=== PATIENT | female | born 1965 | race Caucasian/White ===

== ENCOUNTER → 2020-04-06 11:32 | Outpatient (CLI) | payer OTHER, SELFPAY ==
--- NOTE | ~2020-04-06 | MM_ITS ---
EXAMINATION: MM screening nicholas BI w alejandra HISTORY: Screening TECHNIQUE: Craniocaudal and mediolateral oblique 3-D tomosynthesis images were obtained and synthetic 2-D images were generated. CAD analysis was submitted and interpreted. COMPARISON: Comparison to multiple prior studies sequentially, with oldest reviewed study dated 12/11. BREAST PARENCHYMAL COMPOSITION: The breasts are heterogeneously dense, which may obscure small masses . FINDINGS: There is no evidence of suspicious mass, calcification, or architectural distortion to sugg est malignancy in either breast. There has been no suspicious interval change. IMPRESSION: 1. No mammographic evidence of malignancy. 2. Recommend routine screening mammography in one year. BI-RADS Category 1: Negative Reviewed, dictated and finalized at location A. SS DIRECTOR
== END ==
PROVIDERS: Visit Provider Obstetrics & Gynecology
DX: Z12.31 Encounter for screening mammogram for malignant neoplasm of breast (principal)
CPT/HCPCS: 77063; 77067

== ENCOUNTER 2021-07-19 09:34 | Outpatient (CLI) | payer BC, SELFPAY ==
--- NOTE | ~2021-07-19 | MM_ITS ---
EXAMINATION: MM screening nicholas BI w alejandra HISTORY: Screening TECHNIQUE: Craniocaudal and mediolateral oblique 3-D tomosynthesis images were obtained and synthetic 2-D images were generated. CAD analysis was submitted and interpreted. COMPARISON: Comparison to multiple prior studies sequentially, with oldest reviewed study dated 08/2012. BREAST PARENCHYMAL COMPOSITION: The breasts are heterogenously dense, which may obscure small masses FINDINGS: There is no evidence of suspicious mass, calcification, or architectural distortion to sugg est malignancy in either breast. There has been no suspicious interval change. IMPRESSION: 1. No mammographic evidence of malignancy. 2. Recommend routine screening mammography in one year. BI-RADS Category 1: Negative Reviewed, dictated and finalized at location A.
== END 2021-07-19 09:35 | disposition home or self-care (01) ==
LOC: ANHIMG 09:36
PROVIDERS: Visit Provider Student in an Organized Health Care Education/Training Program
DX: Z12.31 Encounter for screening mammogram for malignant neoplasm of breast (principal)
CPT/HCPCS: 77063; 77067

== ENCOUNTER 2023-10-12 16:14 | Emergency (ER) | payer BC, SELFPAY ==
[2023-10-12 16:22] VITALS: BP 118/79; PULSE 87; RESP 16; TEMP 36.9; O2SAT 98
--- NOTE | 2023-10-12 17:09 | ED.WOUNDLAC ---
HPI - Wound/Laceration General Chief Complaint: Wound/Laceration Stated Complaint: Insect Bites Time Seen by Provider: 10/12/23 16:55 Source: patient, RN notes reviewed and old records reviewed Mode of arrival: ambulatory Limitations: no limitations History of Present Illness HPI narrative: 58 year old female who presents to [facility] care with complaints of red raised round lesion noted to her left upper thigh last pm that was initial tender but now itchy, had similar area to the back of her left lower leg 3 days ago that has lightened but is itchy, each area about 4 cm diameter.. Patient reports that she had been doing some yard work wearing shorts because it was so hot and also has raised pustules scattered on lower right leg and some also to left leg are itchy with some fluid noted from them. Patient states that she has been taking Benadryl for the itching, denies pain, denies any fevers. Onset (ago): day(s) (3) Location: other (lower extremities) Treatments prior to arrival: other (Benadryl) Related Data Allergies Allergy/AdvReac Type Severity Reaction Status Date / Time No Known Allergies Allergy Mild Verified 07/13/21 11:27 Review of Systems Review of Systems: CONSTITUTIONAL: Denies fever, chills, or sweats. CARDIOVASCULAR: Denies chest pain, palpitations, or edema. RESPIRATORY: Denies cough or dyspnea. GASTROINTESTINAL: Denies abdominal pain, nausea, vomiting SKIN: Reports red raised lesion to posterior upper thigh are which is itchy, also light red circular area to posterior left lower leg that is itchy and scattered pustules to lower legs MUSCULOSKELETAL: Denies myalgia. NEUROLOGIC: Denies headache, numbness All systems reviewed & are unremarkable except as noted in HPI and below PMFSH Past Medical History Medical History (Updated 10/13/23 @ 10:44 by Ashli Patel NP) Acid reflux Depression IBS (irritable bowel syndrome) Pre-diabetes Vaginal delivery x4 Surgical History Surgical History History of tonsillectomy [place] teeth extracted Family History Family History Mother Pre-diabetes Father Pre-diabetes Hypertension Social History Social History (Reviewed 05/05/20 @ 14:16 by Anna Ritchie [facility]) Smoking status: Never smoker Alcohol intake: current Alcohol use details: social Substance use: never Comments At time of signature, agree with nursing past medical, surgical, social and family history. There is no relevant family history pertinent to the presenting complaint Exam Narrative: GENERAL: Well-appearing, well-nourished, and in no acute distress. HEAD: Normocephalic, atraumatic. EYES: PERRLA and EOMI. ENT: Nares clear, no rhinorrhea or epistaxis. Mucous membranes moist. NECK: Supple.no lymphadenopathy CHEST: Clear to auscultation. No respiratory distress.SAO2 98% on room air HEART: Regular rate and rhythm. No murmur heard. Normal peripheral pulses. ABDOMEN: Soft, nontender, nondistended, normal active bowel sounds. EXTREMITIES: Normal range of motion. No edema. SKIN: Warm, dry. 4cm area of red raised itchy tissue to back of left thigh, left lower leg posterior light red circular area 4cm diameter itchy with some scattered pustules on lower legs bilateral with some clear fluid from lesions. are also itchy, no fevers noted NEURO: No focal deficits. Alert and oriented x3. Course Course Emergency Course: Patient is aware of diagnosis, understands and agrees to treatment plan. Anticipatory guidance given. Patient agrees to follow-up as directed and is aware of reasons to seek care at the emergency department. Portions of this record may have been created with voice recognition software Level of Care: Express Care Visit Vital Signs Vital signs: Vital Signs Temperature 36.9 C 10/12/23 16:22 Pulse Rate 87 10/12/23 16:22 Respi
== END 2023-10-12 17:36 | disposition home or self-care (01) ==
PROVIDERS: Emergency Provider Registered Nurse
DX: L25.9 Unspecified contact dermatitis, unspecified cause (principal); L03.116 Cellulitis of left lower limb; K21.9 Gastro-esophageal reflux disease without esophagitis; R73.03 Prediabetes
CPT/HCPCS: 99213; G0463

== ENCOUNTER 2024-04-09 10:25 | Outpatient (CLI) | payer BC, SELFPAY ==
--- NOTE | ~2024-04-09 | MM_ITS ---
EXAMINATION: MM screening nicholas BI w alejandra HISTORY: Screening TECHNIQUE: Craniocaudal and mediolateral oblique 3-D tomosynthesis images were obtained and synthetic 2-D images were generated. CAD analysis was submitted and interpreted. COMPARISON: Comparison to multiple prior studies sequentially, with oldest reviewed study dated 01/10. BREAST PARENCHYMAL COMPOSITION: Dense: The breasts are heterogeneously dense, which may obscure small masses FINDINGS: There is no evidence of suspicious mass, calcification, or architectural distortion to sugg est malignancy in either breast. There has been no suspicious interval change. IMPRESSION: 1. No mammographic evidence of malignancy. 2. Recommend routine screening mammography in one year. BI-RADS Category 1: Negative Reviewed, dictated and finalized at location A. 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
--- OUTSIDE RECORDS SUMMARY | 2024-04-09 11:24 | XMS_ITS | Data Portability ---
Author Organization [facility] Address [address] [facility] MICHAEL [place] [address] Care Team Providers Care Credit Portfolio Manager Name Role Phone CORI OLIVO Primary Care Provider Assessment No assessment recorded. Plan of Treatment Reminders Order Date Submit Date Provider Last Modified By Organization Details Last Modified Time Details Appointments None recorded. Lab CBC 2023 024 [facility], [address] [facility], [facility] [address], [place], [address], 4 11:14:15 CMP, serum or plasma 2023 024 [facility], [address] [facility], [facility] [address], [place], [address], 4 11:14:13 lipid panel, serum 2023 024 [facility], [address] [facility], [facility] [address], [place], [address], 4 11:14:12 HbA1c (hemoglobi n A1c), blood 2023 024 KARLY In-Office Order, Internal Use Only DO Not Attach Compendium DO Not Attach Compendium, Do Not Delete/merge, [id number] 4 12:55:58 cytology report, thin prep, smear or scraping, cervical or vaginal 2023 024 [facility], [address] [facility], [address], [place], [address], 4 08:27:36 CBC 2023 024 [facility], [address] [facility], [facility] [address], [place], [address], 4 10:15:19 CMP, serum or plasma 2023 024 [facility], [address] [facility], [facility] [address], [place], [address], 4 10:15:17 lipid panel, serum 2023 024 [facility], [address] [facility], [facility] [address], [place], [address], 4 10:15:16 HbA1c (hemoglobi n A1c), blood 2023 024 K[facility]LY In-Office Order, Internal Use Only DO Not Attach Compendium DO Not Attach Compendium, Do Not Delete/merge, [id number] 4 13:04:35 Referral None recorded. Procedures None recorded. Surgeries None recorded. Imaging MAMMO, screening, bilateral 2023 024 [facility], [address] [place], [address], 5 09:45:32 Medication Orders paroxetine 10 mg tablet 2023 024 [id number], [address], [place], [id number], 4 12:38:07 Patient TargetsNo targets recorded. Patient Instructions Encounter Date Encounter Id Patient Instructions Last Modified By Organization Details Last Modified Time 10/29/2023 [id number] A healthy lifestyle: care instructions [email or web address] Not available 10/29/2023 12:35:23 01/07/2024 [id number] Your women's health annual exam today was unremarkable. Continue to practice breast self awareness like we discussed. Come back to the office with any breast changes, nipple discharge, change to your menstrual cycle, or with complaints of unusual odorous discharge. Otherwise, come back in 1 year for your next well woman annual exam. Do NOT douche as it disturbs the natural balance of bacteria in the vagina and can cause infection. Avoid scented soaps or lotions. Use a basic unscented soap for only the outer skin around your vagina. Wear cotton underwear, avoid thongs, avoid spandex, leggings and wear panty liners daily. You can try probiotics. Use a condom with EVERY sexual encounter to minimize your risk for sexually transmitted infection and unplanned . 1. Start taking a multivitamin, calcium and vitamin D3 supplements daily to keep your bones healthy. 2. Exercise and keep a healthy diet to minimize risk for stroke, heart attack and osteoporosis. 3. Use a once a day vaginal moisturizer (like Replens) if you have bothersome dryness. If dryness continues to be a problem, make an appointment to see us to discuss other options. Keep taking your multivitamins. Your bones get weaker after menopause, and you need to take your calcium and vitamin D3, which are multivitamins, to make sure your bones stay strong. Regular exercise, like walking, is very good to keep bones healthy. Try exercising for 30 minutes 5 times a week. Try having 2-3 servings of low fat dairy every day. Lubrication can help make penetrative intercourse more comfortable. There are 3 types of lube: Water-based (examples are KY jelly, Astroglide): inexpensive, can buy over the counter, often gets sticky and needs to be reapplied. Oil-based (examples olive oil, coconut oil): inexpensive, can stain sheets, do not use with condoms. Silicone-based (examples Uber Lube, Pjur): more expensive, a little goes a long way, does not have scents or stain sheets. [email or web address] Not available 01/07/2024 11:09:02 01/28/2024 [id number] A healthy lifestyle: care instructions [email or web address] Not available 01/28/2024 12:28:25 type 2 diabetes: care instructions jnanney Not available 01/28/2024 12:28:25 Reason for Referral None Reported. Results Created Date Observation Date Name Description Value Unit Range Abnormal Flag Note LastModifiedBy Organization Detail LastModifiedTime 08/19/10/30/2023 LIPID PANEL cholesterol, total 227 mg/dL 100-19 9 above high normal Not Available [address], [address], 10/30/2023 11:14:12 10/29/19 24 10/30/2023 LIPID PANEL triglyceride s 288 mg/dL 0-149 above high normal Not Available [address], [address], 10/30/2023 11:14:12 10/29/19 24 10/30/2023 LIPID PANEL HDL cholesterol 53 mg/dL >39 Not Available [address], [address], 10/30/2023 11:14:12 10/29/19 24 10/30/2023 LIPID PANEL VLDL cholesterol catalina 50 mg/dL 5-40 above high normal Not Available [address], [address], 10/30/2023 11:14:12 10/29/19 24 10/30/2023 LIPID PANEL LDL chol calc ([facility]) 124 mg/dL 0-99 above high normal Not Available [address], [address], 10/30/2023 11:14:12 10/29/19 24 10/30/2023 COMP. METAB OLIC PANEL (14) glucose - mg/dL Test not perfo rmed. Serum was in conta ct with cells when recei alexandra which will make the resul t inacc urate . Not Available [address], [address], 10/30/2023 11:14:13 10/29/19 24 10/30/2023 COMP. METAB OLIC PANEL (14) BUN 20 mg/dL 6-24 Not Available [facility] & [address], [address], 10/30/2023 11:14:13 10/29/19 24 10/30/2023 COMP. METAB OLIC PANEL (14) creatinine 0.73 mg/dL 0.57-1 .00 Not Available [address], [address], 10/30/2023 11:14:13 10/29/19 24 10/30/2023 COMP. METAB OLIC PANEL (14) eGFR 95 mL/mi n/1.7 3 >59 Not Available [address], [address], 10/30/2023 11:14:13 10/29/19 24 10/30/2023 COMP. METAB OLIC PANEL (14) BUN/creatini ne ratio 27 9-23 above high normal Not Available [address], [address], 10/30/2023 11:14:13 10/29/19 24 10/30/2023 COMP. METAB OLIC PANEL (14) sodium 140 mmol/ L 134-14 4 Not Available [address], [address], 10/30/2023 11:14:13 10/29/19 24 10/30/2023 COMP. METAB OLIC PANEL (14) potassium - mmol/ L Test not perfo rmed. Serum was in conta ct with cells when recei alexandra which will make the resul t inacc urate . Not Available [address], [address], 10/30/2023 11:14:13 10/29/19 24 10/30/2023 COMP. METAB OLIC PANEL (14) chloride 104 mmol/ L 96-106 Not Available [address], [address], 10/30/2023 11:14:13 10/29/19 24 10/30/2023 COMP. METAB OLIC PANEL (14) carbon dioxide, total 19 mmol/ L 20-29 below low normal Not Available [address], [address], 10/30/2023 11:14:13 10/29/19 24 10/30/2023 COMP. METAB OLIC PANEL (14) calcium 9.7 mg/dL 8.7-10 .2 Not Available [address], [address], 10/30/2023 11:14:13 10/29/19 24 10/30/2023 COMP. METAB OLIC PANEL (14) protein, total 7.1 g/dL 6.0-8. 5 Not Available [address], [address], 10/30/2023 11:14:13 10/29/19 24 10/30/2023 COMP. METAB OLIC PANEL (14) albumin 4.6 g/dL 3.8-4. 9 Not Available [address], [address], 10/30/2023 11:14:13 10/29/19 24 10/30/2023 COMP. METAB OLIC PANEL (14) globulin, total 2.5 g/dL 1.5-4. 5 Not Available [address], [address], 10/30/2023 11:14:13 10/29/19 24 10/30/2023 COMP. METAB OLIC PANEL (14) bilirubin, total 0.7 mg/dL 0.0-1. 2 Not Available [address], [address], 10/30/2023 11:14:13 10/29/19 24 10/30/2023 COMP. METAB OLIC PANEL (14) alkaline phosphatase 91 IU/L 44-121 Not Available [facility] & [address], [address], 10/30/2023 11:14:13 10/29/19 24 10/30/2023 COMP. METAB OLIC PANEL (14) AST (SGOT) 17 IU/L 0-40 Not Available [facility] & [address], [address], 10/30/2023 11:14:13 10/29/19 24 10/30/2023 COMP. METAB OLIC PANEL (14) ALT (SGPT) 12 IU/L 0-32 Not Available [address], [address], 10/30/2023 11:14:13 10/29/19 24 10/30/2023 CARDI OVASC ULAR REPOR T interpretati on Note Suppl ement al repor t is avail able. Not Available [address], [address], 10/30/2023 11:14:14 10/29/19 24 10/30/2023 CARDI OVASC ULAR REPOR T pdf . Not Available [facility] & [address], [address], 10/30/2023 11:14:14 10/29/19 24 10/30/2023 CBC, PLATE LET, NO DIFFE RENTI AL WBC 8.3 x10e3 /uL 3.4-10 .8 Not Available [facility] & [address], [address], 10/30/2023 11:14:15 10/29/19 24 10/30/2023 CBC, PLATE LET, NO DIFFE RENTI AL RBC 4.18 x10e6 /uL 3.77-5 .28 Not Available [facility] & [address], [address], 10/30/2023 11:14:15 10/29/19 24 10/30/2023 CBC, PLATE LET, NO DIFFE RENTI AL hemoglobin 12.7 g/dL 11.1-1 5.9 Not Available [facility] & [address], [address], 10/30/2023 11:14:15 10/29/19 24 10/30/2023 CBC, PLATE LET, NO DIFFE RENTI AL hematocrit 39.6 % 34.0-4 6.6 Not Available [address], [address], 10/30/2023 11:14:15 10/29/19 24 10/30/2023 CBC, PLATE LET, NO DIFFE RENTI AL MCV 95 fL 79-97 Not Available [facility] & [address], [address], 10/30/2023 11:14:15 10/29/19 24 10/30/2023 CBC, PLATE LET, NO DIFFE RENTI AL MCH 30.4 pg 26.6-3 3.0 Not Available [address], [address], 10/30/2023 11:14:15 10/29/19 24 10/30/2023 CBC, PLATE LET, NO DIFFE RENTI AL MCHC 32.1 g/dL 31.5-3 5.7 Not Available [facility] & [address], [address], 10/30/2023 11:14:15 10/29/19 24 10/30/2023 CBC, PLATE LET, NO DIFFE RENTI AL RDW 12.7 % 11.7-1 5.4 Not Available [address], [address], 10/30/2023 11:14:15 10/29/19 24 10/30/2023 CBC, PLATE LET, NO DIFFE RENTI AL platelets 280 x10e3 /uL 150-45 0 Not Available [facility] & [address], [address], 10/30/2023 11:14:15 10/29/19 24 10/29/2023 HbA1c (hemo globi n A1c), blood HbA1c 7.2 Not Available In-Office Order Internal Use Only DO Not Attach Compendium DO Not Attach Compendium, Do Not Delete/merge, [id number] 10/29/2023 12:35:43 01/07/20 24 01/09/2024 IGP, APTIM A HPV, RFX 16/18 ,45 HPV aptima NEGATI VE negati ve This nucle ic acid ampli ficat ion test detec ts fourt een high- risk HPV types (16,1 8,31, 33,35 ,39,4 5,51, 52,56 ,58,5 9,66, 68) witho ut diffe renti ation . Not Available [facility] ([facility]) [address] [facility], [place], [address], 01/12/2024 08:27:36 01/07/20 24 01/12/2024 IGP, APTIM A HPV, RFX 16/18 ,45 diagnosis: COMMEN T NEGAT ELIANA FOR INTRA EPITH ELIAL REGGIE Hernandez OR MO MCDANIEL . Not Available [facility] ([facility]) [address] [facility], [place], [address], 01/12/2024 08:27:36 01/07/2001/12/2024 IGP, APTIM A HPV, RFX 16/18 ,45 specimen adequacy: COMMEN T Satis facto ry for evalu ation . Endoc ervic al and/o r squam ous metap lasti c cells (endo cervi catalina compo nent) are prese nt. Not Available [facility] ([facility]) [address] [facility], [place], [address], 01/12/2024 08:27:36 01/07/2001/12/2024 IGP, APTIM A HPV, RFX 16/18 ,45 clinician provided ICD10: KULDEEP Newton Z01.4 19 Not Available [facility] ([facility]) [address] [place], [address], 01/12/2024 08:27:36 01/07/2001/12/2024 IGP, APTIM A HPV, RFX 16/18 ,45 performed by: KULDEEP davis, Cytot billie newton (ASCP ) Not Available [facility] ([facility]) [address] [place], [address], 01/12/2024 08:27:36 01/07/20 24 01/12/2024 IGP, APTIM A HPV, RFX 16/18 ,45 . . Not Available [facility] ([facility]) [address] [place], [address], 01/12/2024 08:27:36 01/07/2001/12/2024 IGP, APTIM A HPV, RFX 16/18 ,45 note: KULDEEP Newton The Pap smear is a scree shad test desig marsha to aid in the detec tion of glo ligna nt and malig nant condi tions of the uteri ne cervi x. It is not a diagn ostic proce dure and shoul d not be used as the sole means of detec ting cervi catalina cance r. Both false -posi tive and false -nega tive repor ts do occur . Not Available [facility] ([facility]) [address] [place], [address], 01/12/2024 08:27:36 01/07/20 24 01/12/2024 IGP, APTIM A HPV, RFX 16/18 ,45 test methodology: KULDEEP Newton This liqui d based ThinP rep(R ) pap test was scree marsha with the use of an image guide yenny pizarro Not Available [facility] ([facility]) [address] [facility], [place], [address], 01/12/2024 08:27:36 01/07/2001/12/2024 IGP, APTIM A HPV, RFX 16/18 ,45 HPV genotype reflex COMMEN T Crite kat not met, HPV Genot ype not perfo rmed. Not Available [facility] ([facility]) [address] [facility], [place], [address], 01/12/2024 08:27:36 01/28/2001/29/2024 LIPID PANEL cholesterol, total 277 mg/dL 100-19 9 above high normal Not Available [address], [address], 01/29/2024 10:15:15 01/28/20 24 01/29/2024 LIPID PANEL triglyceride s 244 mg/dL 0-149 above high normal Not Available [address], [address], 01/29/2024 10:15:15 01/28/20 24 01/29/2024 LIPID PANEL HDL cholesterol 54 mg/dL >39 Not Available [facility] [address], [address], 01/29/2024 10:15:15 01/28/20 24 01/29/2024 LIPID PANEL VLDL cholesterol catalina 46 mg/dL 5-40 above high normal Not Available [address], [address], 01/29/2024 10:15:15 01/28/20 24 01/29/2024 LIPID PANEL LDL chol calc ([facility]) 177 mg/dL 0-99 above high normal Not Available [address], [address], 01/29/2024 10:15:15 01/28/20 24 01/29/2024 COMP. METAB OLIC PANEL (14) glucose 123 mg/dL 70-99 above high normal Not Available [address], [address], 01/29/2024 10:15:17 01/28/20 24 01/29/2024 COMP. METAB OLIC PANEL (14) BUN 17 mg/dL 6-24 Not Available [address], [address], 01/29/2024 10:15:17 01/28/20 24 01/29/2024 COMP. METAB OLIC PANEL (14) creatinine 0.61 mg/dL 0.57-1 .00 Not Available [address], [address], 01/29/2024 10:15:17 01/28/20 24 01/29/2024 COMP. METAB OLIC PANEL (14) eGFR 104 mL/mi n/1.7 3 >59 Not Available [address], [address], 01/29/2024 10:15:17 01/28/20 24 01/29/2024 COMP. METAB OLIC PANEL (14) BUN/creatini ne ratio 28 9-23 above high normal Not Available [address], [address], 01/29/2024 10:15:17 01/28/20 24 01/29/2024 COMP. METAB OLIC PANEL (14) sodium 141 mmol/ L 134-14 4 Not Available [address], [address], 01/29/2024 10:15:17 01/28/20 24 01/29/2024 COMP. METAB OLIC PANEL (14) potassium 4.3 mmol/ L 3.5-5. 2 Not Available [address], [address], 01/29/2024 10:15:17 01/28/20 24 01/29/2024 COMP. METAB OLIC PANEL (14) chloride 106 mmol/ L 96-106 Not Available [address], [address], 01/29/2024 10:15:17 01/28/20 24 01/29/2024 COMP. METAB OLIC PANEL (14) carbon dioxide, total 21 mmol/ L 20-29 Not Available [address], [address], 01/29/2024 10:15:17 01/28/20 24 01/29/2024 COMP. METAB OLIC PANEL (14) calcium 9.6 mg/dL 8.7-10 .2 Not Available [address], [address], 01/29/2024 10:15:17 01/28/20 24 01/29/2024 COMP. METAB OLIC PANEL (14) protein, total 6.8 g/dL 6.0-8. 5 Not Available [address], [address], 01/29/2024 10:15:17 01/28/20 24 01/29/2024 COMP. METAB OLIC PANEL (14) albumin 4.4 g/dL 3.8-4. 9 Not Available [address], [address], 01/29/2024 10:15:17 01/28/20 24 01/29/2024 COMP. METAB OLIC PANEL (14) globulin, total 2.4 g/dL 1.5-4. 5 Not Available [address], [address], 01/29/2024 10:15:17 01/28/20 24 01/29/2024 COMP. METAB OLIC PANEL (14) bilirubin, total 0.6 mg/dL 0.0-1. 2 Not Available [address], [address], 01/29/2024 10:15:17 01/28/20 24 01/29/2024 COMP. METAB OLIC PANEL (14) alkaline phosphatase 79 IU/L 44-121 Not Available [address], [address], 01/29/2024 10:15:17 01/28/20 24 01/29/2024 COMP. METAB OLIC PANEL (14) AST (SGOT) 19 IU/L 0-40 Not Available [address], [address], 01/29/2024 10:15:17 01/28/20 24 01/29/2024 COMP. METAB OLIC PANEL (14) ALT (SGPT) 13 IU/L 0-32 Not Available [address], [address], 01/29/2024 10:15:17 01/28/20 24 01/29/2024 CARDI OVASC ULAR REPOR T interpretati on Note Suppl ement al repor t is avail able. Not Available [address], [address], 01/29/2024 10:15:18 01/28/20 24 01/29/2024 CARDI OVASC ULAR REPOR T pdf . Not Available [address], [address], 01/29/2024 10:15:18 01/28/20 24 01/29/2024 CBC, PLATE LET, NO DIFFE RENTI AL WBC 7.3 x10e3 /uL 3.4-10 .8 Not Available [facility] & [address], [address], 01/29/2024 10:15:19 01/28/20 24 01/29/2024 CBC, PLATE LET, NO DIFFE RENTI AL RBC 3.95 x10e6 /uL 3.77-5 .28 Not Available [address], [address], 01/29/2024 10:15:19 01/28/2001/29/2024 CBC, PLATE LET, NO DIFFE RENTI AL hemoglobin 12.1 g/dL 11.1-1 5.9 Not Available [address], [address], 01/29/2024 10:15:19 01/28/20 24 01/29/2024 CBC, PLATE LET, NO DIFFE RENTI AL hematocrit 36.7 % 34.0-4 6.6 Not Available [address], [address], 01/29/2024 10:15:19 01/28/20 24 01/29/2024 CBC, PLATE LET, NO DIFFE RENTI AL MCV 93 fL 79-97 Not Available [facility] & [address], [address], 01/29/2024 10:15:19 01/28/20 24 01/29/2024 CBC, PLATE LET, NO DIFFE RENTI AL MCH 30.6 pg 26.6-3 3.0 Not Available [address], [address], 01/29/2024 10:15:19 01/28/20 24 01/29/2024 CBC, PLATE LET, NO DIFFE RENTI AL MCHC 33.0 g/dL 31.5-3 5.7 Not Available [facility] [address] [place], [address], 01/29/2024 10:15:19 01/28/20 24 01/29/2024 CBC, PLATE LET, NO DIFFE RENTI AL RDW 12.5 % 11.7-1 5.4 Not Available [address], [address], 01/29/2024 10:15:19 01/28/20 24 01/29/2024 CBC, PLATE LET, NO DIFFE RENTI AL platelets 318 x10e3 /uL 150-45 0 Not Available [address], [address], 01/29/2024 10:15:19 01/28/20 24 01/28/2024 HbA1c (hemo globi n A1c), blood HbA1c 7.1 Not Available In-Office Order Internal Use Only DO Not Attach Compendium DO Not Attach Compendium, Do Not Delete/merge, [id number] 01/28/2024 12:28:08 04/09/19 25 04/09/2024 MAMMO , christina fatimal No observ ation record ed. [facility] [address] [place], [address], 04/09/2024 12:12:16 Result Notes None recorded. Problems Name Problem SNOMED Code Status Onset Date Resolution Date Notes Provider Name and Address Organization Details Recorded Time Diabetes mellitus [id number] Active 024 MARGARET NAGEL NP Attn: Accounting ,[address] [facility], [place], [address] , [facility] 11:58:31 Problem Notes None recorded. Procedures Surgical History Date Name Laterality Status Provider Name and Address Organization Details Recorded Time 01/07/2024 Date of Last Pap Smear completed MARGARET NAGEL NP Attn: Accounting,[address] [facility], [place], [address], [place] 01/14/2024 09:11:39 03/12/1973 tonsilectom y/adenoids completed Grecia Davies MA [facility] 10/29/2023 12:20:08 Imaging Results Imaging Date Name Status LastModified by Organiz ation Details LastModified Time 04/09/2024 MAMMO, screening, bilateral active [facility] [address] [place], [address], 04/09/2024 12:12:16 Procedure Notes None recorded. Medical Equipment None Reported. Allergies No known drug allergies Medications Name Sig Start Date Stop Date Status Note LastModified by Organization Details LastModified Time prednison e 10 mg tablet TAKE 6 TABLETS BY MOUTH DAY 1 THEN DECREASE BY 1 TABLET BY MOUTH DAILY UNTIL ALL TAKEN 10/28 completed Not Available Not Available Not Available paroxetin e 10 mg tablet TAKE 1 TABLET BY MOUTH EVERY DAY active Not Available Not Available No t Available atorvasta tin 20 mg tablet TAKE 1 TABLET BY MOUTH EVERY DAY active Not Available Not Available No t Available atorvasta tin 10 mg tablet TAKE 1 TABLET BY MOUTH EVERY DAY 10/29 completed - out of it but would like to stay off this if possible Not Available Not Available Not Available hyoscyami ne ER 0.375 mg tablet,ex tended release,1 2 hr TAKE 1 TABLET BY MOUTH EVERY 12 HOURS active Not Available Not Available No t Available benzonata te 100 mg capsule TAKE 1 TO 2 CAPSULES BY MOUTH EVERY 8 HOURS FOR 5 DAYS NEEDED FOR COUGH 10/28 completed Not Available Not Available Not Available cephalexi n 500 mg capsule TAKE 1 CAPSULE BY MOUTH EVERY 8 HOURS 10/28 completed Not Available Not Available Not Available mupirocin 2 % topical ointment APPLY TOPICALL Y TO THE AFFECTED AREA TWICE DAILY 10/28 completed Not Available Not Available Not Available Vitals Date Recorded Body height Provider Name an d Address Organization Details Last Updated DateTime 10/29/2023 160.02 cm Grecia Davies MA [facility] 10/29/19 12:06:44 Date Recorded Body mass index (BMI) Body weight Provider Name and Address Organization Details Last Updated DateTime 10/29/2023 25.9 kg/m2 27125.49 g Grecia Davies MA [facility] 10/29/2023 12:06:49 Date Recorded Oxygen saturation Oxygen saturation in Arterial blood by Pulse oximetry Provider Name and Address Organization Details Last Updated DateTime 10/29/2023 97 % 97 % Grecia Davies MA [facility] 10/29/2023 12:22:36 Date Recorded Heart rate Provider Name an d Address Organization Details Last Updated DateTime 10/29/2023 83 /min Grecia Davies MA [facility] 10/29/19 12:22:40 Date Recorded Body height Provider Name an d Address Organization Details Last Updated DateTime 01/07/2024 160.02 cm Haleigh Diaz MA [facility] 01/07/20 11:15:27 Date Recorded Body mass index (BMI) Body weight Provider Name and Address Organization Details Last Updated DateTime 01/07/2024 25.7 kg/m2 55653.89 g Haleigh Diaz MA [facility] 01/07/2024 11:15:33 Date Recorded Heart rate Provider Name an d Address Organization Details Last Updated DateTime 01/07/2024 111 /min Haleigh Diaz MA [facility] 01/07/20 11:22:39 Date Recorded Body height Provider Name an d Address Organization Details Last Updated DateTime 01/28/2024 160.02 cm Lesly Quinteros MA [facility] 12:12:57 Date Recorded Body mass index (BMI) Body weight Provider Name and Address Organization Details Last Updated DateTime 01/28/2024 25.4 kg/m2 69392.51 g Lesly Quinteros MA [facility] 01/28/2024 12:13:04 Date Recorded Respiratory rate Provider Name a nd Address Organization Details Last Updated DateTime 01/28/2024 16 /min Lesly Quinteros MA [facility] 12:13:59 Date Recorded Oxygen saturation Oxygen saturation in Arterial blood by Pulse oximetry Provider Name and Address Organization Details Last Updated DateTime 01/28/2024 98 % 98 % Lesly Quinteros MA [facility] 01/28/2024 12:14:53 Date Recorded Heart rate Provider Name an d Address Organization Details Last Updated DateTime 01/28/2024 86 /min Lesly Quinteros MA [facility] 024 12:14:55 Date Recorded Systolic blood pressure Diastolic blood pressure Provider Name and Address Organization Details Last Updated DateTime 10/29/2023 112 mm[Hg] 70 mm[Hg] Grecia Davies MA [facility] 10/29/2023 12:22:34 Date Recorded Systolic blood pressure Diastolic blood pressure Provider Name and Address Organization Details Last Updated DateTime 01/07/2024 93 mm[Hg] 60 mm[Hg] Haleigh Diaz MA [facility] 01/07/2024 11:22:43 Date Recorded Systolic blood pressure Diastolic blood pressure Provider Name and Address Organization Details Last Updated DateTime 01/28/2024 111 mm[Hg] 75 mm[Hg] Lesly Quinteros MA [facility] 01/28/2024 12:14:52 Social History Question Answer Notes LastModified by Organizat ion Details LastModified Time Tobacco Smoking Status [facility] 10/29/2023 12:14:40 What Is Your Level Of Alcohol Consumption? Occasional Information not available 10/29/2023 Are You Blind Or Do You Have Difficulty Seeing? No Information not available 01/28/2024 What Is Your Level Of Caffeine Consumption? Moderate Information not available 10/29/2023 In The 14 Days Before Symptom Onset, Have You Had Close Contact With A Laboratory-confir med COVID-19 While That Case Was Ill? No Information not available 01/28/2024 In The 14 Days Before Symptom Onset, Have You Had Close Contact With A Person Who Is Under Investigation For COVID-19 While That Person Was Ill? No Information not available 01/28/2024 Have You Been To An Area Known To Be High Risk For COVID-19? No Information not available 01/28/2024 Are You Currently Employed? No Retired Information not available 10/29/2023 Are You Deaf Or Do You Have Serious Difficulty Hearing? No Information not available 01/28/2024 What Type Of Diet Are You Following? REGULAR Information not available 10/29/2023 What Was The Date Of Your Most Recent Tobacco Screening? 01/28/2024 Information not available 01/28/2024 What Is Your Relationship Status? Information not available 10/29/2023 Do You Have Smoke And Carbon Monoxide Detectors In Your Home? Yes Information not available 10/29/2023 Are You Passively Exposed To Smoke? No Information no t available 10/29/2023 Do You Feel Stressed (tense, Restless, Nervous, Or Anxious, Or Unable To Sleep At Night)? [id number] Information not available 10/29/2023 Do You Use Any Illicit Or Recreational Drugs? No Information not available 10/29/2023 Has Tobacco Cessation Counseling Been Provided? No Information not available 10/29/2023 Do You Or Have You Ever Used Any Other Forms Of Tobacco Or Nicotine? No Information not available 10/29/2023 Sex: Unknown Functional Status Question Answer Note LastModified by Organization D etails LastModified Time Are you able to care for yourself? Yes Information n ot available 01/28/2024 What is your exercise level? None Information not available 01/28/2024 Mental Status None recorded. Family History Relationship Description Onset Age of this Age Resolved Age Notes LastModified by Organization Details LastModified Time Maternal Grandmother Diabetes mellitus [email or web address] Not available 2023 12:13:35 Father Diabetes mellitus [email or web address] Not available 2023 12:13:35 Mother Diabetes mellitus [email or web address] Not available 2023 12:13:35 Medical History Condition Response Coronary Artery Disease N Other N Atrial Fibrillation N High Blood Pressure N Thyroid Problems N Kidney or Bladder Problems N GI Problems N Depression N COPD N Blood Clots N Have you had a mammogram in the last yea r? N Eating Disorder N Skin Problems N Anemia N Heart Attack ([place]) N Anxiety Disorder N Diabetes N Muscle, Joint, or Bone Problems N Arthritis N Seizures/Epilepsy N Have you had a colonoscopy in the last 1 0 years? N Acid Reflux (GERD) N Cancer N Stroke N Asthma N Allergies N Have you had a PSA blood test in the las t year? N ADHD N Substance Abuse N High Cholesterol N Hepatitis N Liver Disease N Schizophrenia N Headaches N Heart Failure N Osteoporosis N Gynecological History Statement/Question Response Abnormal Pap N Date of Last Pap Smear 01/07/2024 Date of Last Mammogram Date of LMP Sexually Active? Y Obstetrics History GPAL:G 4 P 4 0 0 0 Type Value Full Term 4 Total 4 Immunizations Vaccine Type Date Status Note Provider Jasbir bliss and Address Organization Details Recorded Time zoster recombinant 03/27/2022 completed MERRILL Bar[place], [place] - [facility] 10/29/2023 13:07:42 zoster recombinant 01/05/2022 completed MERRILL [place], [place] [facility] 10/29/2023 13:07:42 COVID-19, mRNA, LNP-S, PF, 30 mcg/0.3 mL dose 06/07/2020 completed Grecia Davies MA null, [place] - [facility] 10/29/2023 13:07:42 COVID-19, mRNA, LNP-S, PF, 30 mcg/0.3 mL dose 06/28/2020 completed MERRILL [place], [place] - [facility] 10/29/2023 13:07:42 COVID-19, mRNA, LNP-S, PF, 30 mcg/0.3 mL dose 02/28/2021 completed MERRILL [place], [place] [facility] 10/29/2023 13:07:42 COVID-19, mRNA, LNP-S, PF, 30 mcg/0.3 mL dose, job-sucrose 07/09/2021 completed MERRILL Bar[place], [place] - [facility] 10/29/2023 13:07:42 Influenza, split virus, quadrivalent, PF 01/05/2022 completed MERRILL [place] - [facility] 10/29/2023 13:07:42 Past Encounters Encounter ID Performer Location Encounter Start Date Encounter Closed Date Diagnosis/Indication Diagnosis SNOMED-CT Code Diagnosis ICD10 Code Diagnosis Note [id number] Cori lOivo PA-C [facility] [address] [place] [address] 10/29/2023 11:56:15 10/30/2023 09:02:49 Prediabetes 909210820 R73.03 Overweight 070629576 E66 .3 Mixed anxi ety and depressive disorder 926938432 F41.8 [id number] MARGARET NAGEL, PRAVEEN [facility] [address] [facility] [place] [address] 01/07/2024 10:29:26 01/10/2024 13:25:31 Gynecologic examination [id number] Z01.419 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 Pap+ HPV cotesting done; pt has no pap history2. STI screening {{complete d declined *}}.3. Pt is post menopausal .4. Discussed breast self awareness5 . Mammogram ordered per ACOG guidelines 6. Colonoscop y done at age 50. Benign7. Discussed when to return to clinic for /AGILE DEVELOPER complaints . Screening mammography 24 132386 Z12.31 Needs screening mammogram Menopause [id number] N95. 1 pt is post menopausal Discussed vaginal changes, moisturize rs and lubricatio nDiscussed returning to clinic with any vaginal bleedingAl ready taking Calcium and Vitamin D supplement ationTakin g Paroxetine 10 mg for Hot flashes and is experienci ng relief. [id number] Cori Olivo PA-C [facility] [address] [facility] [place] [address] 01/28/2024 11:59:03 02/01/2024 13:26:25 Type 2 diabetes mellitus without complication 279265298 E11.9 Overweight [id number] E66 .3 Health Concerns Section Related Observation LastModified by Organization Detai ls LastModified Time None Recorded Concern Status LastModified by Organization Details LastModified Time None Recorded Advance Directives Directive None Recorded Payers Encounter Date Sequence Insurance Name Policy Number Policy Cárdenas Covered Member ID Cárdenas Member ID Guarantor Name 10/29/2023 1 [place] [id number] Trae Livingston [id number] AB Chelsea Livingston 01/07/2024 1 [place] [id number] Trae Livingston [id number] AB Chelsea Livingston 01/28/2024 1 [place] [id number] Trae Livingston [id number] AB Chelsea Livingston Notes Date Note Type Note Provider Name and Address Organization Details Recorded Time 10/29/2023 text/html needs a phys...says she has a spider bite...her previous pcp ... 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 Reports menopause at age 54. Did do HRT for 1 year and then stopped. Had c/o hot flashes and night sweats. Currently taking Paroxetine 10 mg 1 PO daily. This has helped. Denies any /AGILE DEVELOPER complaints. Denies any breast changes/pain, fatigue/cold intolerance/hair loss/dry skin. Denies dyspareunia, pelvic pressure or bowel movement changes.Denies SOB/chest pain/dizziness. Denies any fever or chills. Denies any family history of breast, ovarian, endometrial or pancreatic cancer. LMP: age 54Last pap smear: unknownPap due: TodayLast Mammogram: unknownLast Colonoscopy: age 50Patient is currently sexually active with 1 male partner and has had 1 male partner in the past 35 years. MARGARET NAGEL NP Attn: [address] [facility], [place], [address], [facility] 01/07/2024 11:58:37 01/28/2024 text/html follow up on diabetes...had covid awhile back...wants rechecked last a1c was 7.2 Cori Olivo PA-C Attn: [address] [facility], [place], [address], [facility] 01/28/2024 12:29:08 OBGyn Episode Ob Episode Information Episode Created Date Number of Fetuses Patient Bloodtype Patient rh Status Prepregnancy Weight lbs Domestic Partner Domestic Partner Phone Father Name Broadcast Meteorologist Status 01/07/20 24 1 CLOSED Fetus Data First Name Last Name Admitted to NICU Weight (g) Sex Living Outcome Pediatric Complications Fetus ID Race Codes Race Delivery Type Full Term [id number] [place] Calculation Initial [place] Date Initial Exam Date Initial Exam Provider Initial Ultrasound Date Last Menstrual Period Date Ultra Sound Weeks Gestation 0 Eighteen To Twenty Week [place] Update Ultra Sound Date Fundal Height At Umbil Quickening Date Ultra Sound Latest Weeks Gestation Final [place] Confirmed By Final [place] Confirmed Date Final [place] Date Ultra Sound Latest Days Gestation 0 0 Menstrual History Last Menstrual Date Menses Monthly On Bcp Conception Prior Menses Frequency Hcg Plus Date Menarche Onset Age Delivery Information Delivery Date Delivery Type Labor Anesthesia Weeks Gestation Incision Type Labor Labor Length Hrs Delivered By Post Complications Tubal Sterilization Discharge Date Comments 5 Discharge Information Feeding Method Contraceptive Method Maternal HG B and HCT Levels Ob Episode Information Episode Created Date Number of Fetuses Patient Bloodtype Patient rh Status Prepregnancy Weight lbs Domestic Partner Domestic Partner Phone Father Name Broadcast Meteorologist Status 01/07/20 24 1 CLOSED Fetus Data First Name Last Name Admitted to NICU Weight (g) Sex Living Outcome Pediatric Complications Fetus ID Race Codes Race Delivery Type Full Term [id number] [place] Calculation Initial [place] Date Initial Exam Date Initial Exam Provider Initial Ultrasound Date Last Menstrual Period Date Ultra Sound Weeks Gestation 0 Eighteen To Twenty Week [place] Update Ultra Sound Date Fundal Height At Umbil Quickening Date Ultra Sound Latest Weeks Gestation Final [place] Confirmed By Final [place] Confirmed Date Final [place] Date Ultra Sound Latest Days Gestation 0 0 Menstrual History Last Menstrual Date Menses Monthly On Bcp Conception Prior Menses Frequency Hcg Plus Date Menarche Onset Age Delivery Information Delivery Date Delivery Type Labor Anesthesia Weeks Gestation Incision Type Labor Labor Length Hrs Delivered By Post Complications Tubal Sterilization Discharge Date Comments 9 Discharge Information Feeding Method Contraceptive Method Maternal HG B and HCT Levels Ob Episode Information Episode Created Date Number of Fetuses Patient Bloodtype Patient rh Status Prepregnancy Weight lbs Domestic Partner Domestic Partner Phone Father Name Broadcast Meteorologist Status 01/07/20 24 1 CLOSED Fetus Data First Name Last Name Admitted to NICU Weight (g) Sex Living Outcome Pediatric Complications Fetus ID Race Codes Race Delivery Type Full Term [id number] [place] Calculation Initial [place] Date Initial Exam Date Initial Exam Provider Initial Ultrasound Date Last Menstrual Period Date Ultra Sound Weeks Gestation 0 Eighteen To Twenty Week [place] Update Ultra Sound Date Fundal Height At Umbil Quickening Date Ultra Sound Latest Weeks Gestation Final [place] Confirmed By Final [place] Confirmed Date Final [place] Date Ultra Sound Latest Days Gestation 0 0 Menstrual History Last Menstrual Date Menses Monthly On Bcp Conception Prior Menses Frequency Hcg Plus Date Menarche Onset Age Delivery Information Delivery Date Delivery Type Labor Anesthesia Weeks Gestation Incision Type Labor Labor Length Hrs Delivered By Post Complications Tubal Sterilization Discharge Date Comments 8 Discharge Information Feeding Method Contraceptive Method Maternal HG B and HCT Levels Ob Episode Information Episode Created Date Number of Fetuses Patient Bloodtype Patient rh Status Prepregnancy Weight lbs Domestic Partner Domestic Partner Phone Father Name Broadcast Meteorologist Status 01/07/20 24 1 CLOSED Fetus Data First Name Last Name Admitted to NICU Weight (g) Sex Living Outcome Pediatric Complications Fetus ID Race Codes Race Delivery Type Full Term [id number] [place] Calculation Initial [place] Date Initial Exam Date Initial Exam Provider Initial Ultrasound Date Last Menstrual Period Date Ultra Sound Weeks Gestation 0 Eighteen To Twenty Week [place] Update Ultra Sound Date Fundal Height At Umbil Quickening Date Ultra Sound Latest Weeks Gestation Final [place] Confirmed By Final [place] Confirmed Date Final [place] Date Ultra Sound Latest Days Gestation 0 0 Menstrual History Last Menstrual Date Menses Monthly On Bcp Conception Prior Menses Frequency Hcg Plus Date Menarche Onset Age Delivery Information Delivery Date Delivery Type Labor Anesthesia Weeks Gestation Incision Type Labor Labor Length Hrs Delivered By Post Complications Tubal Sterilization Discharge Date Comments 4 Discharge Information Feeding Method Contraceptive Method Maternal HG B and HCT Levels
== END 2024-04-09 10:26 | disposition home or self-care (01) ==
LOC: CHSIMG 10:27
PROVIDERS: PCP Physician Assistant
DX: Z12.31 Encounter for screening mammogram for malignant neoplasm of breast (principal)
CPT/HCPCS: 77063; 77067